=== PATIENT | female | born 1965 | race American Indian/Alaskan Native ===

== ENCOUNTER 2020-09-26 14:21 | Emergency (ER) | payer SELFPAY ==
[2020-09-26 14:46] VITALS: BP 155/105
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
== END 2020-09-26 16:27 | disposition home or self-care (01) ==
LOC: ED 14:21
DX: S80.11XA Contusion of right lower leg, initial encounter (principal); S20.222A Contusion of left back wall of thorax, initial encounter; V49.49XA Driver injured in collision with other motor vehicles in traffic accident, initial encounter; Y93.89 Activity, other specified; Y92.488 Other paved roadways as the place of occurrence of the external cause; Y99.8 Other external cause status
CPT/HCPCS: 99282